=== PATIENT | female | born 1975 | race Caucasian/White ===

== ENCOUNTER 2019-06-05 14:43 | Emergency (ER) | payer OTHER ==
[2019-06-05 14:56] VITALS: BP 116/73
[2019-06-05] MEDS ORDERED: Fluorescein Sodium TOPICAL* 1 MG TEST STRIP OPHTHALMIC ONE (15:08)
[2019-06-05] MEDS ORDERED: LoraTADine TAB(NF) 10 MG TAB (AUTOSUB to CETIRIZINE) PO ONE (15:19)
--- NOTE | 2019-06-05 15:30 | UC ---
Eye Complaint HPI - HPI Summary HPI Summary: 43 year old female with no PMH presents after being scratched nearby eye, L, by child after attempting to take away toy today at noon. Then went outside to [place], [place], noted eye became more swollen. Decreased eyelid movement due to swelling, mild discomfort but no pain. Obstructed vision due to pain. no tearing, watering of eye. No FB sensation, no pain with blinking. no prior episodes/ eye problems. - History of Current Complaint Chief Complaint: UCEye Stated Complaint: EYE COMPLAINT Time Seen by Provider: 06/05/19 14:57 Hx Obtained From: Patient Hx Last Menstrual Period: 06/03/19 ?: No Onset/Duration: Sudden Onset, Lasting Hours Timing: Constant Severity Currently: None Pain Intensity: 0 Pain Scale Used: 0-10 Numeric Location of Injury: Eye Lid (lower), Eye Lid (upper), Periorbital Aggravating Factor(s): Nothing Associated Signs And Symptoms: Positive: Swelling. Negative: Drainage (Clear), Drainage (Purulent), Vision Impairment Bilateral, Vision Impairment Right, Vision Impairment Left, Fever - Allergies/Home Medications Allergies/Adverse Reactions: Allergies Allergy/AdvReac Type Severity Reaction Status Date / Time No Known Allergies Allergy Verified 06/05/19 14:48 Home Medications: Home Medications Venlafaxine CAP (NF) [Effexor CAP (NF)] 1 tab PO DAILY 06/05/19 [History Confirmed 06/05/19] PMH/Surg Hx/FS Hx/Imm Hx Previously Healthy: Yes - Surgical History Surgical History: None - Family History Known Family History: Positive: Non-Contributory - Social History Alcohol Use: Daily Alcohol Amount: 1-2 drinks Substance Use Type: None Smoking Status (MU): Never Smoked Tobacco Review of Systems All Other Systems Reviewed And Are Negative: Yes Constitutional: Positive: Negative Eyes: Positive: Other - swelling, L eye. Negative: Blurred Vision, Drainage, Eye Redness, Photophobia Neurological: Negative: Headache Is Patient Immunocompromised?: No Physical Exam - Summary Physical Exam Summary: Fluoroscein staining performed, no uptake throughout L eye Triage Information Reviewed: Yes Appearance: Well-Appearing, No Pain Distress, Well-Nourished Vital Signs: Initial Vital Signs Temp 98.9 F 06/05/19 14:49 Pulse 70 06/05/19 14:49 Resp 18 06/05/19 14:49 BP 116/73 06/05/19 14:49 Pulse Ox 98 06/05/19 14:49 Vital Signs Reviewed: Yes Eyes: Positive: Conjunctiva Clear, Other: - moderate edema noted around inner cantus, ducts appear open/ without trauma. + excoriations seen above and below eye, non over eyelids. EMOI, PERRLA Left eye. Negative: Discharge Neck: Positive: Supple, Nontender Musculoskeletal Exam: Normal Neurological Exam: Normal Psychological Exam: Normal Skin: Positive: Other - excoriations along eye Eye Complaint Course/Dx - Course Course Of Treatment: Edema/ Swelling around eye from Trauma - Claritin or over the counter antihistamine as needed to help with inflammation - Ice as tolerated to decrease swelling/ pain - Saline eye drops as needed for dry eye - GO to ER with increased pain, vision changes/ decreased vision. - Rest - Follow up with opthamology within 2-3 days if no improvement - Differential Dx/Diagnosis Differential Diagnosis/HQI/PQRI: Conjunctivitis, Corneal Abrasion Provider Diagnosis: Periorbital edema of left eye Discharge ED - Sign-Out/Discharge Documenting (check all that apply): Patient Departure All imaging exams completed and their final reports reviewed: No Studies - Discharge Plan Condition: Good Disposition: HOME Referrals: [facility] [Outside] No Primary Care Phys,NOPCP [Primary Care Provider] - Michele Pradhan MD [Medical Doctor] - Additional Instructions: Edema/ Swelling around eye from Trauma - Claritin or over the counter antihistamine as needed to help with inflammation - Ice as tolerated to decrease swelling/ pain - Saline eye drops as needed for dry eye - GO to ER with increased pain, vision changes/ decreased vision. - Rest - Follow up with opthamology within 2-3 days if no improvement - Billing Disposition and Condition Condition: GOOD Disposition: Home
== END 2019-06-05 15:35 | disposition home or self-care (01) ==
LOC: UCEAST 14:43
DX: H05.222 Edema of left orbit (principal)
CPT/HCPCS: 99212; A9270-GY; G0463